=== PATIENT | male | born 1965 | race Caucasian/White ===

== ENCOUNTER 2021-10-18 17:06 | Emergency (ER) | payer OTHER ==
[2021-10-18 18:12] LABS: HEMOGLOBIN 16.9 gm/dl (14.0-17.5); RED BLOOD COUNT 5.4 M/UL (4.20-5.50); WHITE BLOOD COUNT 10.6 K/UL (4.5-11.0)
[2021-10-18 18:50] LABS: BUN/CREATININE RATIO 13 (0-10)
[2021-10-18] MEDS ORDERED: PREDNISONE 10 M10 MG PO (20:59)
[2021-10-18] MEDS ORDERED: ZOFRAN ODT 4 MG4 MG SL (20:59)
== END 2021-10-18 21:30 | disposition home or self-care (01) ==
LOC: ER1 17:06
PROVIDERS: Physician Assistant
DX: R42 Dizziness and giddiness (principal); R07.9 Chest pain, unspecified; R11.0 Nausea; R00.0 Tachycardia, unspecified; F17.210 Nicotine dependence, cigarettes, uncomplicated; R40.2410 Glasgow coma scale score 13-15, unspecified time; Z20.822 Contact with and (suspected) exposure to COVID-19; Z88.8 Allergy status to other drugs, medicaments and biological substances
CPT/HCPCS: 0240U; 70450; 71045; 80053; 82550; 82553; 83605; 84484; 85025; 96374; 96375; 99285; J1100; J2405

== ENCOUNTER 2021-11-17 20:35 | Emergency (ER) | payer OTHER ==
[~2021-11-17 20:35] MED LIST: PREDNISONE 10 M10 MG PO; ZOFRAN ODT 4 MG4 MG SL
[2021-11-18 00:07] LABS: HEMOGLOBIN 14.8 gm/dl (14.0-17.5); RED BLOOD COUNT 4.74 M/UL (4.20-5.50); WHITE BLOOD COUNT 5.5 K/UL (4.5-11.0)
[2021-11-18 00:29] LABS: BUN/CREATININE RATIO 9 (0-10)
[2021-11-19 08:14] LABS: LYME TOTAL ANTIBODY CIA Negative (Negative)
== END 2021-11-18 02:57 | disposition home or self-care (01) ==
LOC: ER1 20:35
PROVIDERS: Family Medicine
DX: R42 Dizziness and giddiness (principal); R20.2 Paresthesia of skin; M79.601 Pain in right arm; M79.602 Pain in left arm; G89.29 Other chronic pain; M79.651 Pain in right thigh; M79.652 Pain in left thigh; F17.200 Nicotine dependence, unspecified, uncomplicated; E78.5 Hyperlipidemia, unspecified; I10 Essential (primary) hypertension; Z88.8 Allergy status to other drugs, medicaments and biological substances
CPT/HCPCS: 80053; 82550; 82553; 84439; 84443; 84484; 85025; 86618; 93005; 99284